=== PATIENT | female | born 2000 | race Caucasian/White ===

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

== ENCOUNTER 2021-03-19 20:01 | Emergency (ER) | payer OTHER ==
[~2021-03-19 20:01] MED LIST: AMOXICILLIN500 MG PO; CODEINE/GUAIFEN1 SOL PO
== END 2021-03-19 21:59 | disposition left against medical advice (07) | DRG 951 ==
LOC: ED 20:01 → LWOBS 21:59
DX: Z53.21 Procedure and treatment not carried out due to patient leaving prior to being seen by health care provider (principal)

== ENCOUNTER 2021-03-20 06:11 | Emergency (ER) | payer OTHER ==
[~2021-03-20] VITALS: Ht 165.1 cm; Wt 115.0 kg
[2021-03-20 08:13] VITALS: BP 134/76
== END 2021-03-20 08:22 | disposition home or self-care (01) | DRG 179 ==
LOC: ED 06:11
DX: U07.1 COVID-19 (principal)

== ENCOUNTER 2021-11-28 06:24 | Emergency (ER) | payer OTHER ==
[~2021-11-28] VITALS: Ht 165.1 cm; Wt 88.6 kg
[2021-11-28 06:32] VITALS: BP 131/83
[2021-11-28] MEDS ORDERED: BIRTH CONTROL (06:39)
[2021-11-28 06:45] VITALS: BP 122/72
[2021-11-28] MEDS ORDERED: EC-NAPROXEN500 MG PO (06:48)
[2021-11-28] MEDS ORDERED: AMOX/K CLAV875 M1 PO (06:48)
[2021-11-28 06:59] VITALS: BP 122/72
== END 2021-11-28 07:11 | disposition home or self-care (01) | DRG 153 ==
LOC: ED 06:24
DX: J02.9 Acute pharyngitis, unspecified (principal)